=== PATIENT | female | born 1945 | race Caucasian/White ===

== ENCOUNTER 2018-05-22 10:40 | Emergency (ER) | payer BC, OTHER ==
--- NOTE | 2018-05-22 10:51 | UC ---
Complaint Female HPI - HPI Summary HPI Summary: Patient is a 73 year old female, who present today to the urgent care with urinary symptoms for past 3 days. She reports burning and dysuria along with frequency and urgency. She tried drinking a lot of water yesterday that made her feel little better but her symptoms started again last night. She denies any pelvic pain or any back pain. No hematuria or vaginal discharge. She had a similar episode 4 years ago. Denies any fever, chills, cough chest pain or shortness of breath . Denies any abdominal pain , nausea or vomiting , diarrhea or constipation. Also noticeable is right eye redness that she started noticing today. She denies any blurring of vision or discharge from the eye. - History Of Current Complaint Stated Complaint: POSS BLADDER INFECTION Time Seen by Provider: 05/22/18 10:44 Hx Obtained From: Patient ?: No - postmenopausal - Allergies/Home Medications Allergies/Adverse Reactions: Allergies Allergy/AdvReac Type Severity Reaction Status Date / Time Sulfa (Sulfonamide Allergy Verified 05/22/18 10:55 Antibiotics) Home Medications: Home Medications ALPRAZolam [Alprazolam] 0.5 mg PO DAILY 05/22/18 [History Confirmed 05/22/18] Levothyroxine TAB* [Synthroid 125 MCG TAB*] 125 mcg PO DAILY 05/22/18 [History Confirmed 05/22/18] Lisinopril TAB* [Prinivil TAB 5 MG*] 5 mg PO DAILY 05/22/18 [History Confirmed 05/22/18] PMH/Surg Hx/FS Hx/Imm Hx - Additional Past Medical History Additional PMH: Hypertension Hypothyroidism Mild asthma, she is not on any inhaler on a daily basis Previously Healthy: Yes Review of Systems All Other Systems Reviewed And Are Negative: Yes Constitutional: Positive: Negative Skin: Positive: Negative Eyes: Positive: Eye Redness - Right conjunctival redness ENT: Positive: Negative Respiratory: Positive: Negative Cardiovascular: Positive: Negative Gastrointestinal: Positive: Negative Genitourinary: Positive: Dysuria, Frequency, Urgency Motor: Positive: Negative Neurovascular: Positive: Negative Musculoskeletal: Positive: Negative Neurological: Positive: Negative Psychological: Positive: Negative Is Patient Immunocompromised?: No Physical Exam - Summary Physical Exam Summary: Physical Exam: Const: Appears well. No signs of apparent distress present. Alert and oriented x 3. Musculo: Walks with a normal gait. Head/Face: Atraumatic, normocephalic on inspection. Eyes: EOMI and PERRLA in both eyes. Conjunctival erythema noted on the right eye . No discharge noted ENT: Hearing normal Respiratory: Respirations are unlabored. Lungs clear to auscultation bilaterally, no wheezing , rhonchi or rales noted . CVS: Regular rate and Rhythm, S1S2 normal , no murmurs identified. Extremities: Peripheral circulation is grossly normal. Pulses 2+ Abdomen : Soft non tender , nondistended , Bowel sounds present . No CVA tenderness bilaterally Skin: No lesions or rash located on the upper extremities or on the lower extremities. Neuro: Cranial nerves II to XII intact, motor and sensory intact. DTR Intact bilaterally. Mood is normal. Affect is normal. Triage Information Reviewed: Yes Vital Signs Reviewed: Yes Complaint Female Dx - Course Course Of Treatment: During the visit today, we obtained . Urine analysis which demonstrated 3+ blood and 3+ leukoesterase, nitrite negative. We discussed the findings and and plan to treat it and she will follow with a primary care doctor in 2-3 days if needed. We also discussed about possible early conjunctivitis of the right eye. I'll prescribe the eyedrops and she'll follow up with ophthalmology. Medications E prescribed Patient expressed understanding . - Differential Dx/Diagnosis Provider Diagnosis: UTI (urinary tract infection), Conjunctivitis Discharge - Sign-Out/Discharge Documenting (check all that apply): Patient Departure All imaging exams completed and their final reports reviewed: No Studies - Discharge Plan Condition: Stable Disposition: HOME Prescriptions: Ciprofloxacin 0.3% OPTH.TORSTEN* [Cipro 0.3% Opth*] 1 drop RIGHT EYE Q6H 5 Days #1 btl Nitrofurantoin Macrocrystals* [Macrodantin 100 mg*] 100 mg PO BID 5 Days #10 cap Phenazopyridine TAB* [Pyridium 100 mg TAB*] 100 mg PO TID 2 Days #6 tab Patient Education Materials: Urinary Tract Infection in Women (ED), Conjunctivitis (ED) Referrals: Kulwant mE MD [Medical Doctor] - 3 Days Bryan Morley MD [Primary Care Provider] - 3 Days Additional Instructions: Please start taking the medication as prescribed to the pharmacy . Start using the eyedrops if symptoms get worse . Follow up with ophthalmology in 2-3 days Follow up with your primary care doctor in 2-3 days. Patients blood pressure slightly high in Urgent care today , plan follow up with PCP for better control in 4 weeks Return to Urgent care / ER if symptoms get worse. - Billing Disposition and Condition Condition: STABLE Disposition: Home
[2018-05-22 10:54] VITALS: BP 142/89
== END 2018-05-22 11:32 | disposition home or self-care (01) ==
LOC: UCEAST 10:40
DX: N39.0 Urinary tract infection, site not specified (principal); H10.9 Unspecified conjunctivitis; I10 Essential (primary) hypertension; J45.909 Unspecified asthma, uncomplicated; Z79.899 Other long term (current) drug therapy; Z88.2 Allergy status to sulfonamides
CPT/HCPCS: 81003; 87077; 87086; 87186; 99202; G0463

== ENCOUNTER 2019-03-29 14:01 | Day surgery (SDC) | payer BC, MEDICARE ==
[~2019-03-29 14:01] MED LIST: Acetaminophen TAB* 325 MG PO PRN; Buffered Lidocaine 1% SYRIN* 1 ML/SYRINGE INTRADERM ONE; Cyclopentolate 1% OPTH.SOL* 2 ML BTL ONE; Ketorolac 0.5% OPHTH (NF) 0.5 % 5 ML BTL ONE; Lidocaine 1% MPF ** 5 ML VIAL ONE; Lidocaine 2% w/ EPI 1:200,000* 20 ML SDV VIAL ONE; Neomycin/Polymy/Dex OPTH.SUSP* MAXITROL 0.1% 5 ML ONE; Phenylephrine OPHTH SOL 2.5%* 2 ML ONE; Povidone Iodine 5% OPTH* 30 ML BTL ONE; Proparacaine 0.5% OPHTH.SOL* 15 ML BTL ONE; acetaZOLAMIDE TAB* 250 MG ONE
[2019-03-29] MEDS ORDERED: Midazolam* 1 MG/ML 2 ML VIAL (2 MG) ONE (15:53)
[2019-03-29 16:58] VITALS: BP 141/84
--- NOTE | 2019-03-30 00:31 | OP ---
DATE OF OPERATION: 03/29/19 [facility] DATE OF : 45 SURGEON: Raj Bravo M.D. PREOPERATIVE DIAGNOSIS: Cataract, left. POSTOPERATIVE DIAGNOSIS: Cataract, left. OPERATIVE PROCEDURE: Extracapsular cataract extraction with intraocular lens implant left eye. DESCRIPTION OF PROCEDURE: The patient was brought to the operating room after being given 1/2% Alcaine with epinephrine drops in the preoperative area. The eye was prepped and draped in the usual sterile fashion. Sterile drape and eyelid speculum were placed. Again, topical 1/2% Alcaine with epinephrine was given. A paracentesis incision was made at the 3 o'clock position with the No.75 blade. Clear cornea incision 2.2 x 2.2-mm was created at the 6 o'clock position starting at the anterior limbus using the 2.2-mm keratome. The anterior chamber was irrigated with 0.4 mL of 1% non-preservative intracameral lidocaine and filled with DisCoVisc. A capsulorrhexis was completed using the cystotome and the Utrata forceps. Hydrodissection was performed with balanced salt solution. The lens nucleus was removed with the Phacoemulsification handpiece without incident. Cortex was removed with the irrigation-aspiration handpiece. The capsular bag was re-inflated using DisCoVisc and an [id number] implant was inserted with the shooter. The irrigation-aspiration handpiece was used to remove all residual DisCoVisc. The eye was refilled with balanced salt solution and the wound checked and found to be watertight. Topical Maxitrol drops were given. [id number]/[facility] #: [id number] [facility]
== END 2019-03-29 17:07 | disposition home or self-care (01) ==
LOC: OREAST 14:01
PROVIDERS: ATTEND Specialist
DX: H25.812 Combined forms of age-related cataract, left eye (principal); H43.813 Vitreous degeneration, bilateral; E03.9 Hypothyroidism, unspecified; M19.90 Unspecified osteoarthritis, unspecified site; F32.9 Major depressive disorder, single episode, unspecified
CPT/HCPCS: A9270-GY; J2250; V2632

== ENCOUNTER 2019-04-05 08:00 | Day surgery (SDC) | payer BC, MEDICARE ==
[~2019-04-05 08:00] MED LIST changes: -Cyclopentolate 1% OPTH.SOL* 2 ML BTL ONE; -Ketorolac 0.5% OPHTH (NF) 0.5 % 5 ML BTL ONE; -Lidocaine 1% MPF ** 5 ML VIAL ONE; -Lidocaine 2% w/ EPI 1:200,000* 20 ML SDV VIAL ONE; -Neomycin/Polymy/Dex OPTH.SUSP* MAXITROL 0.1% 5 ML ONE; -Phenylephrine OPHTH SOL 2.5%* 2 ML ONE; -Povidone Iodine 5% OPTH* 30 ML BTL ONE; -Proparacaine 0.5% OPHTH.SOL* 15 ML BTL ONE; -acetaZOLAMIDE TAB* 250 MG ONE
[2019-04-05] MEDS ORDERED: Midazolam* 1 MG/ML 5 ML VIAL (5 MG) ONE (09:34)
[2019-04-05 10:28] VITALS: BP 145/78
--- NOTE | 2019-04-05 10:49 | OP ---
DATE OF OPERATION: 04/05/2019. DATE OF : 1945. SURGEON: Raj Bravo M.D. PREOPERATIVE DIAGNOSIS: Cataract right eye. POSTOPERATIVE DIAGNOSIS: Cataract right eye. OPERATIVE PROCEDURE: Extracapsular cataract extraction with intraocular lens implant right eye. PROCEDURE: The patient was brought to the operating room after being given 1/2% Alcaine with epineph rine drops in the preoperative area. The eye was prepped and draped in the usual sterile fashion. S terile drape and eyelid speculum were placed. Again, topical 1/2% Alcaine with epinephrine was given . A paracentesis incision was made at the 9 o'clock position with the No.75 blade. Clear cornea inc ision 2.2 x 2.2-mm was created at the 12 o'clock position starting at the anterior limbus using the 2 .2-mm keratome. The anterior chamber was irrigated with 0.4 mL of 1% non-preservative intracameral l idocaine and filled with DisCoVisc. A capsulorrhexis was completed using the cystotome and the Utrat a forceps. Hydrodissection was performed with balanced salt solution. The lens nucleus was removed w ith the Phacoemulsification handpiece without incident. Cortex was removed with the irrigation-aspir ation handpiece. The capsular bag was re-inflated using DisCoVisc and an SN60WF 20.5 implant was ins erted with the shooter. The irrigation-aspiration handpiece was used to remove all residual DisCoVis c. The eye was refilled with balanced salt solution and the wound checked and found to be watertight . Topical Maxitrol drops were given. [id number]/[facility] #: [id number]
[2019-04-05] MEDS ORDERED: Lidocaine 1% MPF ** 5 ML VIAL ONE (13:31)
[2019-04-05] MEDS ORDERED: Lidocaine 2% w/ EPI 1:200,000* 20 ML SDV VIAL ONE (13:31)
[2019-04-05] MEDS ORDERED: Cyclopentolate 1% OPTH.SOL* 2 ML BTL ONE (13:31)
[2019-04-05] MEDS ORDERED: Ketorolac 0.5% OPHTH (NF) 0.5 % 5 ML BTL ONE (13:31)
[2019-04-05] MEDS ORDERED: Phenylephrine OPHTH SOL 2.5%* 2 ML ONE (13:31)
[2019-04-05] MEDS ORDERED: Povidone Iodine 5% OPTH* 30 ML BTL ONE (13:31)
[2019-04-05] MEDS ORDERED: Neomycin/Polymy/Dex OPTH.SUSP* MAXITROL 0.1% 5 ML ONE (13:31)
[2019-04-05] MEDS ORDERED: Proparacaine 0.5% OPHTH.SOL* 15 ML BTL ONE (13:32)
== END 2019-04-05 10:39 | disposition home or self-care (01) ==
LOC: OREAST 08:00
PROVIDERS: ATTEND Specialist
DX: H25.811 Combined forms of age-related cataract, right eye (principal); H43.811 Vitreous degeneration, right eye; E03.9 Hypothyroidism, unspecified; M19.90 Unspecified osteoarthritis, unspecified site; I10 Essential (primary) hypertension; J45.909 Unspecified asthma, uncomplicated
CPT/HCPCS: A9270-GY; J2250; V2632

== ENCOUNTER 2019-12-19 10:54 | Inpatient (IN) ==
[~2019-12-19 10:54] MED LIST changes: -Acetaminophen TAB* 325 MG PO PRN; +Buffered Lidocaine 1% SYRIN 1 ml INTRADERM ONE; -Buffered Lidocaine 1% SYRIN* 1 ML/SYRINGE INTRADERM ONE; +Dexamethasone IV 4 MG/ML VIAL 1 ml VIAL IV SLOW PU ONE; +Famotidine IV 10 MG/ML 2 ml VIAL (20 mg) IV ONE; +Lactated Ringers 1000 ml BAG 1,000 ML IV SCH
[2019-12-19] MEDS ORDERED: Dexamethasone IV 4 MG/ML VIAL 1 ml VIAL ONE (11:04)
[2019-12-19] MEDS ORDERED: Famotidine IV 10 MG/ML 2 ml VIAL (20 mg) ONE (11:04)
[2019-12-19] MEDS ORDERED: ceFAZolin 2 GM PREMIX 2 GM/50 ML BAG ONE (11:05)
[2019-12-19] MEDS ORDERED: ROPIVACAINE 5 MG/ML 30 ML BTL (0.5%) ONE ×2 (12:24→12:39)
[2019-12-19] MEDS ORDERED: fentaNYL 100 mcg/2 ml 50 MCG/ML VIAL ONE (12:40)
[2019-12-19] MEDS ORDERED: Midazolam 5 mg/5 ml VIAL 1 mg/ml 5 ml VIAL (5 mg) ONE (12:40)
[2019-12-19] MEDS ORDERED: Propofol 10 MG/ML 20 ML BTL ONE ×3 (13:29→15:09)
[2019-12-19] MEDS ORDERED: Lidocaine 2% PF 5 ML VIAL ONE (13:29)
[2019-12-19] MEDS ORDERED: EPHEDrine (Pressors) 50 MG/ML VIAL ONE (13:51)
[2019-12-19] MEDS ORDERED: Ondansetron ODT 4 mg TAB 4 MG TAB PO PRN (14:04)
[2019-12-19] MEDS ORDERED: Lactulose 30 ml UDC PO PRN (14:04)
[2019-12-19] MEDS ORDERED: Ondansetron 4 mg VIAL 2 MG/ML 2 ml VIAL IV PRN ×2 (14:04→15:31)
[2019-12-19] MEDS ORDERED: diPHENhydraMINE 25 mg TAB PO PRN (14:04)
[2019-12-19] MEDS ORDERED: diPHENhydraMINE IV 50 MG/ML 1 ml VIAL (BENADRYL) IV PRN (14:04)
[2019-12-19] MEDS ORDERED: Magnesium Hydroxide LIQ 30 ML UDC PO PRN (14:04)
[2019-12-19] MEDS ORDERED: Morphine 2 MG/ML SYRINGE IV PRN (14:04)
[2019-12-19] MEDS ORDERED: LevoCETirizine 5 mg TAB (NF) PO PRN (14:08)
[2019-12-19] MEDS ORDERED: HYDROcodone/ACETAMIN 5/325 mg TAB PO PRN (15:31)
[2019-12-19] MEDS ORDERED: fentaNYL 100 mcg/2 ml 50 MCG/ML VIAL IV PRN (15:31)
[2019-12-19] MEDS ORDERED: Morphine 4 MG/ML VIAL (1 ml) IV PRN (15:31)
[2019-12-19] MEDS ORDERED: oxyCODONE/Acetamin 5/325 mg TAB PO PRN (15:31)
[2019-12-19] MEDS ORDERED: Naloxone 0.4 mg VIAL 0.4 mg/ml 1 ml VIAL IV PRN (15:31)
[2019-12-19] MEDS: Lactated Ringers 1000 ml BAG 1,000 ML IV SCH (18:19)
[2019-12-19] MEDS: ceFAZolin 1 GM ADVAN 1 GM in NS 0.9% 50 ML 50 ML IVPB SCH (21:35)
[2019-12-19] MEDS: Magnesium Hydroxide LIQ 30 ML UDC PO SCH (21:35)
[2019-12-19] MEDS: oxyCODONE/Acetamin 5/325 mg TAB PO PRN (21:36)
[2019-12-20] MEDS: oxyCODONE/Acetamin 5/325 mg TAB PO PRN ×3 (02:01→14:44)
[2019-12-20] MEDS: Lactated Ringers 1000 ml BAG 1,000 ML IV SCH (04:29)
[2019-12-20] MEDS: ceFAZolin 1 GM ADVAN 1 GM in NS 0.9% 50 ML 50 ML IVPB SCH ×2 (05:09→13:30)
[2019-12-20 06:55] LABS: Hematocrit 33 % (35-47); Hemoglobin 11.6 g/dL (12.0-16.0); Mean Platelet Volume 6.6 fL (7.4-10.4); Platelet Count 204 10^3/uL (150-450)
[2019-12-20 07:16] LABS: BUN/Creatinine Ratio 15.3 (8-20); Calcium 8.7 mg/dL (8.6-10.3); EGFR African American 95.8 (>60); EGFR Non-African American 79.2 (>60); Potassium 4.1 mmol/L (3.5-5.0)
[2019-12-20] MEDS ORDERED: Vitamin THERAPEUTIC TAB PO SCH (09:00)
[2019-12-20] MEDS: Magnesium Hydroxide LIQ 30 ML UDC PO SCH (09:45)
[2019-12-20] MEDS ORDERED: Prochlorperazine 5 mg/ml 2 ml VIAL (10 mg) IV PRN (10:53)
[2019-12-20 11:45] VITALS: BP 129/63
== END 2019-12-20 16:30 | disposition home or self-care (01) | DRG 470 ==
LOC: AA 10:54 → SSU 18:24
PROVIDERS: ADMIT Orthopaedic Surgery Adult Reconstructive Orthopaedic Surgery; ATTEND Orthopaedic Surgery Adult Reconstructive Orthopaedic Surgery